=== PATIENT | female | born 1960 | race Caucasian/White ===

== ENCOUNTER 2020-09-25 13:36 | Outpatient (CLI) | payer MEDICAID, SELFPAY ==
--- NOTE | 2020-09-25 13:42 | MM_ITS ---
WS: [id number] Exam: [place] [id number] Date/Time of Exam: 09/25/2020 1:46 PM Reason For Exam: SCREENING MLO and CC views of both breasts were obtained. Comparison with previous studies 07/13/2019 and 018. Scattered fibroglandular densities are noted. There is a questionable new 5 mm nodule identified in t he central right breast almost directly behind the nipple on the CC view. This is difficult to identi fy on the MLO view. This is not definitely identified on prior studies. The remaining aspects of both breasts were unchanged. No architectural distortion or suspicious calcification is demonstrated. Recommendations: Further workup with compression spot imaging as well as regional ultrasound would be indicated. This mammogram was also analyzed by the Computer Aided Detection System (CAD). MM/[place] [id number] IMPRESSION: 1. Questionable new 5 mm nodular density identified in the right breast on the CC view only. This nodule is at mid depth almost directly behind the nipple. BI -RADS Category 0.
== END 2020-09-25 13:37 | disposition home or self-care (01) ==
LOC: RADSHAW 13:38
PROVIDERS: PCP Internal Medicine; Visit Provider Internal Medicine
DX: Z12.31 Encounter for screening mammogram for malignant neoplasm of breast (principal); N63.10 Unspecified lump in the right breast, unspecified quadrant
CPT/HCPCS: 77067

== ENCOUNTER 2020-10-21 09:43 | Outpatient (CLI) | payer MEDICAID, SELFPAY ==
--- NOTE | 2020-10-21 09:45 | US_ITS ---
WS: [id number] Exam: US breast RT limited* [id number] Date/Time of Exam: 10/21/2020 10:31 AM Reason For Exam: RIGHT ABNORMAL MAMMOGRAM Regional ultrasound of the right breast is performed. The central right breast at mid depth was targe patt for evaluation. At the 12:00 position 2 cm from the nipple a 2.7 mm well-defined cyst is noted. There were no suspici ous solid masses or nodules identified in this region. Recommendations: Continue yearly screening mammography. US/US breast RT limited* [id number] IMPRESSION: 1. 2.7 mm well-defined cyst at the 12:00 position 2 cm from the nipple. 2. No suspicious solid mass or nodule is noted in this region. BI-RADS Category 2.
--- NOTE | 2020-10-21 09:45 | MM_ITS ---
WS: [id number] Exam: [place] [id number] Date/Time of Exam: 10/21/2020 10:04 AM Reason For Exam: RIGHT ABNORMAL MAMMOGRAM VIEWS: CC compression spot imaging as well as a 90 degree lateral view of the right breast was obtain ed. Comparison made with prior exam of 09/25/2020. Findings: Additional views of the right breast demonstrate no discrete suspicious mass, tumor calcification or architectural distortion. Scattered fibroglandular densities are present. MM/[place] [id number] Impression: BI-RADS: 0-Incomplete: Need additional imaging evaluation FOLLOW-UP: Regional ultrasound of the right breast recommended for further work up. This mammogram was also analyzed by the Computer Aided Detection System R2 Imag e Clip Baker.
== END 2020-10-21 09:44 | disposition home or self-care (01) ==
LOC: RADSHAW 09:43
PROVIDERS: PCP Internal Medicine; Visit Provider Internal Medicine
DX: R92.8 Other abnormal and inconclusive findings on diagnostic imaging of breast (principal)
CPT/HCPCS: 76642; 77065

== ENCOUNTER 2020-11-10 12:26 | Outpatient (CLI) | payer MEDICAID, SELFPAY ==
--- NOTE | 2020-11-10 12:32 | XR_ITS ---
WS: [id number] XR chest 2V* [id number] REASON FOR EXAM: LEFT RIB PAIN FINDINGS: The chest is unchanged compared to 03/22/2017. The heart and mediastinum are within normal limits. Calcified granulomatous disease is seen in both hemithoraces. No active pulmonary parenchymal or pleu ral disease is identified. Old healed right clavicular fracture. Posttraumatic degenerative change in the left acromioclavicular joint. Mild to moderate degenerative spondylosis in the mid and lower thoracic spine. No left rib ab normality identified. XR/XR chest 2V* [id number] IMPRESSION: Unchanged examination with no acute abnormality.
== END 2020-11-10 12:27 | disposition home or self-care (01) ==
PROVIDERS: PCP Internal Medicine; Visit Provider Internal Medicine
DX: R07.81 Pleurodynia (principal)
CPT/HCPCS: 71046

== ENCOUNTER 2021-06-24 07:15 | Outpatient (CLI) | payer MEDICAID, SELFPAY ==
--- NOTE | 2021-06-24 07:15 | USCV_ITS ---
AgarwalVicenta jones Age: 60 Gender: F : 1960 Exam Date: 06/24/2021 07:34 Ordering Phys: Autumn Rueda MD Technologist: Krupa Pope [place]am Location[place] [facility] [place]: LEFT CAROTID STENOSIS Risk Factors: Previous Vascular Surgery: Right Brachial BP: / Left Brachial BP: / Right Left Velocity (cm/s) Spectral Plaque Velocity (cm/s) Spectral Plaque Syst/Diast Broadening Syst/Diast Broadening 70.60/ 17.60 Prox CCA 48.70 / 13.70 57.30/ 16.50 Mid CCA 43.60 / 17.90 50.70/ 17.60 Distal CCA 42.70 / 13.70 66.20/ 16.50 Prox ICA 261.60/ 89.40 65.10/ 19.80 Mid ICA 142.10/ 43.20 62.80/ 23.20 Distal ICA 134.90/ 41.40 69.50 ECA 87.50 0.94 ICA/CCA 5.88 Antegrade Vertebral Antegrade 40.10/ 13.80 cm/s 55.20/ 21.70 cm/s Tri Subclavian 132.1 131.5 0 0 FINDINGS Comparison:. 01/13/18. Diffuse bilateral scattered calcified plaque and intimal thickening throughout the common carotid arteries and extending through the bifurcation. Progression of stenosis and plaque on the left. Marked elevation of left systolic and diastolic velocities. Antegrade vertebral arteries. CONCLUSIONS Left ICA stenosis 70-99%. Right ICA stenosis < 50%. Progression of left ICA stenosis since 2018. Dr. Shawna Hernandez DO (Electronically Signed) Final Date: 24 June 2021 09:07 S
== END 2021-06-24 07:16 | disposition home or self-care (01) ==
LOC: RAD 07:17
PROVIDERS: PCP Internal Medicine; Visit Provider Internal Medicine
DX: I65.23 Occlusion and stenosis of bilateral carotid arteries (principal)
CPT/HCPCS: 93880

== ENCOUNTER 2021-12-21 09:33 | Outpatient (CLI) | payer MEDICARE, MEDICAID, SELFPAY ==
--- NOTE | 2021-12-21 09:48 | MM_ITS ---
WS: [id number] BILATERAL SCREENING 3D TOMOSYNTHESIS DIGITAL MAMMOGRAM WITH CAD HISTORY: SCREENING COMPARISON: 09/25/2020, 07/13/2019 Bilateral CC and MLO views submitted. Computer aided detection analyzed. Breast composition: The breasts are heterogeneously dense, which may obscure small masses. No suspici ous masses, microcalcifications or architectural distortion. The calcifications and asymmetries are s table. MM/[place] [id number] IMPRESSION: BI-RADS: 2-Benign FOLLOW UP: 1 Year Follow-up
== END 2021-12-21 09:34 | disposition home or self-care (01) ==
LOC: RADSHAW 09:39
PROVIDERS: PCP Internal Medicine; Visit Provider Internal Medicine
DX: Z12.31 Encounter for screening mammogram for malignant neoplasm of breast (principal)
CPT/HCPCS: 77063; 77067

== ENCOUNTER 2023-07-05 14:53 | Outpatient (CLI) | payer MEDICARE, MEDICAID, SELFPAY ==
--- NOTE | 2023-07-05 15:00 | MM_ITS ---
WS: [id number] Bilateral screening 3D tomosynthesis digital mammogram, 07/05/2023 Clinical Data: SCREENING Comparison: 12/21/2021, 10/21/2020, 09/25/2020, 07/13/2019, 01/30/2018, 07/16/2016, 01/13/2015, 01/30/2014, , 12/24/2013. Findings: The breast parenchymal pattern shows heterogeneous density. No spiculated masses or clustered calcifi cations are seen. There are no secondary signs of carcinoma. Impression: 1. Negative bilateral mammogram unchanged. 2. Recommend annual screening mammograms. MM/[place] [id number] BIRADS: 1-Negative FOLLOW UP: 1 Year Follow-up The CAD checkerer hand was used.
== END 2023-07-05 14:54 | disposition home or self-care (01) ==
LOC: MOBLMAM 14:56
PROVIDERS: PCP Internal Medicine; Visit Provider Internal Medicine
DX: Z12.31 Encounter for screening mammogram for malignant neoplasm of breast (principal)
CPT/HCPCS: 77063; 77067

== ENCOUNTER 2023-10-24 08:38 | Outpatient (CLI) | payer MEDICARE, MEDICAID, SELFPAY ==
--- NOTE | 2023-10-24 09:14 | FL_ITS ---
WS: [id number] Exam: FL barium swallow modifd [id number] Date/Time of Exam: 10/24/2023 9:28 AM Reason For Exam: Other dysphagia Fluoroscopy time: 2min [id number] minutes # of spot films: The exam was performed in conjunction with the speech therapy service. The patient tolerated all consistencies of barium mixture foodstuffs without aspiration or penetratio n. Oropharyngeal phase of swallowing was grossly normal. The the patient swallowed a barium tablet wi thout difficulty or complication. IMPRESSION1. No sign of aspiration or penetration. A separate report of findings and recommendations will follow from the speech therapy service.
== END 2023-10-24 08:39 | disposition home or self-care (01) ==
LOC: RAD 08:39
PROVIDERS: PCP Internal Medicine; Visit Provider Internal Medicine
DX: R06.09 Other forms of dyspnea (principal)
CPT/HCPCS: 74230; 92611

== ENCOUNTER 2024-01-10 10:52 | Outpatient (CLI) | payer MEDICARE, MEDICAID, SELFPAY ==
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
== END 2024-01-10 10:53 | disposition home or self-care (01) ==
PROVIDERS: PCP Internal Medicine; Visit Provider Nurse Practitioner Family
DX: M79.672 Pain in left foot (principal)
CPT/HCPCS: 73620

== ENCOUNTER 2024-06-16 16:19 | Emergency (ER) | payer MEDICARE, MEDICAID, SELFPAY ==
[2024-06-16 16:20] VITALS: BP 143/91; PULSE 89; RESP 16; TEMP 36.4; O2SAT 95; BMI 28.9
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
[2024-06-16 16:31] VITALS: BP 121/90; PULSE 85; O2SAT 94
[2024-06-16] MEDS: iohexol 350 mg/mL 500 mL Btl (per mL) IV (16:44)
[2024-06-16 17:43] VITALS: RESP 16
[2024-06-16] MEDS: morphine 4 mg/mL SDV 1 mL IVP (17:43)
[2024-06-16 18:22] LABS: Basophils % 0.3 %; Eosinophils % 0.2 %; Hematocrit 37.4 % (36-47); Lymphocytes # 0.8 10^3/uL (0.8-4.8); Lymphocytes % 5.7 %; Mean Corpuscular HGB Conc 32.6 g/dL (30-55); Mean Corpuscular Hemoglobin 30.8 pg (27-33); Mean Corpuscular Volume 94.4 fl (85-98); Mean Platelet Volume 10.4 fL (7.4-10.4); Monocytes # 0.7 10^3/uL (0.2-0.9); Monocytes % 4.9 %; Neutrophils # 11.96 10^3/uL (1.8-7.7); Neutrophils % 88.2 %; Nucleated Red Blood Cells % 0 %; Platelet Count 260 10^3/cmm (157-399); Red Blood Count 3.96 10^6/uL (3.85-5.65); Red Cell Distribution Width 12.8 % (12.1-15.1); White Blood Count 13.57 10^3/uL (3.29-11.43)
[2024-06-16 18:41] LABS: Alanine Aminotransferase 37 U/L (0-33); Albumin Level 4.3 g/dL (3.5-5.2); Alkaline Phosphatase 72 U/L (35-105); Anion Gap 14.9 (5-19); Aspartate Amino Transferase 86 U/L (0-32); Blood Urea Nitrogen 15 mg/dL (8-23); Calcium 8.3 mg/dL (8.5-10.5); Carbon Dioxide 24 mmol/L (22-29); Chloride 103 mmol/L (98-107); Creatinine Clr Calc Pharmacy 58.4868; Globulin 2.8 g/dL (1.3-4.6); Glomerular Filtration Rate 63.7 mL/min (90-130); Glucose 180 mg/dL (65-115); Osmolality Calculated 291 mOsm/kg (285-295); Potassium 3.9 mmol/L (3.5-5.1); Sodium 138 mmol/L (136-145); Total Bilirubin 0.2 mg/dL (0.15-1.2); Total Protein 7.1 g/dL (6.6-8.7)
[2024-06-16 19:07] VITALS: BP 103/67; PULSE 91; O2SAT 89
== END 2024-06-16 19:11 | disposition short-term general hospital (02) ==
PROVIDERS: Emergency Provider Emergency Medicine; PCP Internal Medicine
DX: S32.82XA Multiple fractures of pelvis without disruption of pelvic ring, initial encounter for closed fracture (principal); S37.011A Minor contusion of right kidney, initial encounter; V89.2XXA Person injured in unspecified motor-vehicle accident, traffic, initial encounter
CPT/HCPCS: 71260; 73552; 74177; 80053; 85025; 96374; 99285; 99291; 99292; J2270

== ENCOUNTER 2024-09-19 11:19 | Outpatient (CLI) | payer MEDICARE, SELFPAY ==
--- NOTE | 2024-09-19 11:20 | MM_ITS ---
WS: [id number] BILATERAL SCREENING DIGITAL TOMOSYNTHESIS MAMMOGRAM WITH CAD HISTORY: SCREENING COMPARISON: 07/05/2023, 09/25/2020, 12/21/2021 Bilateral CC and MLO views with tomosynthesis and synthetic mammography submitted. Computer aided det ection analyzed. Breast composition: The breasts are heterogeneously dense, which may obscure small masses. No suspici ous masses, microcalcifications or architectural distortion. 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 MM/MM scr tomosynthesis [id number] IMPRESSION: BI-RADS: 2 - Benign FOLLOW UP: 1 Year Follow-up
== END 2024-09-19 11:20 | disposition home or self-care (01) ==
PROVIDERS: PCP Internal Medicine; Visit Provider Internal Medicine
DX: Z12.31 Encounter for screening mammogram for malignant neoplasm of breast (principal); R92.333 Mammographic heterogeneous density, bilateral breasts; N64.89 Other specified disorders of breast; R92.1 Mammographic calcification found on diagnostic imaging of breast
CPT/HCPCS: 77063; 77067

== ENCOUNTER → 2024-10-19 13:22 | Outpatient (BNVA) | payer MEDICARE, SELFPAY | PROVIDERS: PCP Internal Medicine; Visit Provider Nurse Practitioner Family | DX: M79.672 Pain in left foot (principal); M19.072 Primary osteoarthritis, left ankle and foot; M77.32 Calcaneal spur, left foot | CPT/HCPCS: 73630 ==

== ENCOUNTER 2025-06-27 08:37 | Outpatient (CLI) | payer MEDICARE, SELFPAY ==
--- NOTE | 2025-06-27 08:47 | USCV_ITS ---
Vicenta Agarwal Age: 64 Gender: F : 1960 Exam Date: 06/27/2025 09:16 Ordering Phys: Autumn Rueda MD Technologist: LIYA [place] [facility] [place]: Murmur BP: 130 / 70 HR: 70 Rhythm: Sinus Technical Quality: Adequate MEASUREMENTS (Male / Female) Normal Values 2D ECHO LV Diastolic Diameter PLAX 4.3 cm 4.2 - 5.9 / 3.9 - 5.3 cm IVS Diastolic Thickness 0.8 cm 0.6 - 1.0 / 0.6 - 0.9 cm IVS Systolic Thickness 1.0 cm LVPW Diastolic Thickness 1.1 cm 0.6 - 1.0 / 0.6 - 0.9 cm LVPW Systolic Thickness 1.1 cm LVOT Diameter 2.0 cm LV Ejection Fraction 2D Teich 21.9 % LV Ejection Fraction MOD 4C 58.5 % LV Ejection Fraction MOD 2C 58.9 % LV Ejection Fraction 2C AL 59.7 % LA Diameter 2.6 cm RA Systolic Volume 4C AL 32.7 ml RA Systolic Volume 4C MOD 31.6 ml Aorta at Sinotubular Diameter 2.1 cm M-MODE LA Ao Ratio MM 1.3 AV Cusp Separation MM 0.8 cm DOPPLER AV Peak Velocity 172.7 cm/s LVOT Peak Velocity 67.0 cm/s AV Area Cont Eq vti 1.4 cm squared AV Area Cont Eq pk 1.3 cm squared MV Peak Velocity 79.0 cm/s MV Area PHT 3.8 cm squared Mitral E to A Ratio 0.9 TR Peak Velocity 159.0 cm/s TR Peak Gradient 10.1 mmHg TV Peak E Velocity 69.0 cm/s PV Peak Velocity 101.0 cm/s FINDINGS Left Ventricle Normal left ventricular size, systolic function and wall thickness, with no regional wall motion abnormalities. Left ventricular ejection fraction is estimated at 60%. Grade I/IV diastolic dysfunction (abnormal relaxation filling pattern), normal to mildly elevated filling pressures. Right Ventricle Normal right ventricular size and systolic function. Right Atrium Normal right atrial size. Left Atrium Normal left atrial size. IA Septum Normal appearance of the interatrial septum. Mitral Valve Moderately thickened mitral valve. No mitral valve stenosis. Trace mitral valve regurgitation. Aortic Valve Severe aortic valve calcification. Moderate aortic valve stenosis, mean gradient 5.7 mmHg, SEJAL 1.4 cm squared. Trace aortic valve regurgitation. Tricuspid Valve Normal tricuspid valve structure. No tricuspid valve stenosis or regurgitation. Normal pulmonary pressure. Pulmonic Valve Normal pulmonic valve structure. No pulmonic valve stenosis or regurgitation. Pericardium No pericardial effusion. Aorta Normal diameter of the aortic root and ascending thoracic aorta. IVC Normal IVC diameter. CONCLUSIONS Normal left ventricular size, systolic function and wall thickness, with no regional wall motion abnormalities. Left ventricular ejection fraction is estimated at 60%. Grade I/IV diastolic dysfunction (abnormal relaxation filling pattern), normal to mildly elevated filling pressures. Severe aortic valve calcification. Moderate aortic valve stenosis, mean gradient 5.7 mmHg, SEJAL 1.4 cm squared. Trace aortic valve regurgitation. Moderately thickened mitral valve. No mitral valve stenosis. Trace mitral valve regurgitation. There is no pericardial effusion. Right atrial pressure is around 5 mm of mercury. John Harper MD (Electronically Signed) Final Date: 02 July 2025 19:22 S
== END 2025-06-27 08:38 | disposition home or self-care (01) ==
PROVIDERS: PCP Internal Medicine; Visit Provider Internal Medicine
DX: R01.1 Cardiac murmur, unspecified (principal); R93.1 Abnormal findings on diagnostic imaging of heart and coronary circulation; I05.9 Rheumatic mitral valve disease, unspecified; I35.8 Other nonrheumatic aortic valve disorders; I35.0 Nonrheumatic aortic (valve) stenosis
CPT/HCPCS: 93306